=== PATIENT | female | born 1970 ===

== ENCOUNTER 2017-02-26 08:04 | Observation (INO) | payer OTHER ==
[2017-02-26 08:14] VITALS: BMI 32.2
[2017-02-26 09:22] LABS: ADD MANUAL DIFF? NO
--- NOTE | 2017-02-26 09:23 | ED PDOC ---
Arrival/HPI - General Chief Complaint: Chest Pain Time Seen by Provider: 02/26/17 08:48 Historian: Patient - History of Present Illness Narrative History of Present Illness (Text): 02/26/17 08:59 A 46 year old female, whose past medical history includes appendectomy and cholecystectomy, presents to the emergency department complaining of "not feeling well" for the past 3 days. Patient reports 3 days ago she had some right lower back pain, which has currently improved. Patient says she thought pain was do to constipation so she drank a special tea, which help her move her bowels. She notes yesterday she was sweating, had a headache, some dizziness and left sided chest discomfort. She states currently she just feels fatigued. Patient denies any fever, abdominal pain, nausea, vomiting, dysuria, or any other complaints at this time. Patient does not drink, smoke or use drugs. PMD: Dr. Vicente Time/Duration: Other (3 days) Symptom Onset: Gradual Symptom Course: Unchanged Quality: Other ("discomfort") Activities at Onset: Rest Context: Home Past Medical History - Provider Review Nursing Documentation Reviewed: Yes - Psychiatric Hx Substance Use: No - Surgical History Hx Appendectomy: Yes Hx Section: Yes Hx Cholecystectomy: Yes Hx Musculoskeletal Surgery: Yes (right shoulder) Other/Comment: ovary cyst removal Family/Social History - Physician Review Nursing Documentation Reviewed: Yes Family/Social History: Other (cardiac disease (grandmother)) Smoking Status: Never Smoked Hx Alcohol Use: No Hx Substance Use: No Allergies/Home Meds Allergies/Adverse Reactions: Allergies No Known Allergies Allergy (Verified 02/26/17 08:14) Home Medications: Home Meds Medication Instructions Recorded Confirmed No Known Home Med 02/26/17 02/26/17 Review of Systems - Physician Review All systems were reviewed & negative as marked: Yes - Review of Systems Constitutional: absent: Fevers Cardiovascular: Chest Pain Gastrointestinal: absent: Abdominal Pain, Nausea, Vomiting Musculoskeletal: Back Pain Neurological: Headache, Dizziness Endocrine: Diaphoresis Physical Exam Vital Signs Reviewed: Yes Vital Signs Temp Pulse Resp BP Pulse Ox 02/26/17 12:00 97.8 F 80 18 114/79 100 02/26/17 10:06 97.7 F 60 18 121/78 100 02/26/17 08:10 98.1 F 70 16 123/96 H 100 Temperature: Afebrile Blood Pressure: Hypertensive Pulse: Regular Respiratory Rate: Normal Appearance: Positive for: Well-Appearing, Non-Toxic, Comfortable Pain Distress: None Mental Status: Positive for: Alert and Oriented X 3 - Systems Exam Head: Present: Atraumatic, Normocephalic Pupils: Present: PERRL Extroacular Muscles: Present: EOMI Conjunctiva: Present: Normal Mouth: Present: Moist Mucous Membranes Neck: Present: Normal Range of Motion Respiratory/Chest: Present: Clear to Auscultation, Good Air Exchange. No: Respiratory Distress, Accessory Muscle Use Cardiovascular: Present: Regular Rate and Rhythm, Normal S1, S2. No: Murmurs Abdomen: Present: Normal Bowel Sounds. No: Tenderness, Distention, Peritoneal Signs Back: Present: Normal Inspection Upper Extremity: Present: Normal Inspection. No: Cyanosis, Edema Lower Extremity: Present: Normal Inspection. No: Edema Neurological: Present: GCS=15, CN II-XII Intact, Speech Normal Skin: Present: Warm, Dry, Normal Color. No: Rashes Psychiatric: Present: Alert, Oriented x 3, Normal Insight, Normal Concentration Medical Decision Making ED Course and Treatment: 02/26/17 08:59 Impression: A 46 year old female with generalized weakness and left chest discomfort. Differential Diagnosis include but are not limited to: ACS vs. Viral illness Plan: -- EKG -- Chest X-ray -- Labs -- Urinalysis -- Aspirin -- Reassess and disposition Progress Notes: EKG: Ordered, reviewed, and independently interpreted the EKG. Rate : 76 BPM Rhythm : NSR Interpretation : Incomplete right bundle branch block, prolong QT Comparison : No previous EKG for comparison. 02/26/17 09:45 Chest X-ray: Creator : Ely Yun V. COMPARISON: No prior. FINDINGS: LUNGS: No active pulmonary disease. PLEURA: No significant pleural effusion identified, no pneumothorax apparent. CARDIOVASCULAR: Normal. OSSEOUS STRUCTURES: No significant abnormalities. VISUALIZED UPPER ABDOMEN: Normal. OTHER FINDINGS: EKG leads in place IMPRESSION: No active disease. - Lab Interpretations Lab Results: 02/26/17 09:00 02/26/17 09:00 Lab Results 02/26/17 09:20: Urine Color Yellow, Urine Appearance Clear, Urine pH 6.0, Ur Specific [place] 1.010, Urine Protein Negative, Urine Glucose (UA) Negative, Urine Ketones Negative, Urine Blood Negative, Urine Nitrate Negative, Urine Bilirubin Negative, Urine Urobilinogen 0.2, Ur Leukocyte Esterase Trace H, Urine RBC 0 - 2, Urine WBC 2 - 5, Ur Epithelial Cells Many, Amorphous Sediment Few, Urine Bacteria Mod, Urine Other Fiber 02/26/17 09:00: WBC 7.4, RBC 4.28, Hgb 11.8 L, Hct 36.2, MCV 84.6, MCH 27.6, MCHC 32.6, RDW 14.4, Plt Count 356, MPV 10.6, Gran % 57.8, Lymph % (Auto) 33.1, [place] % (Auto) 6.8 H, Eos % (Auto) 1.9, Baso % (Auto) 0.4, Gran # 4.28, Lymph # 2.5, [place] # 0.5, Eos # 0.1, Baso # 0.03, D-Dimer, Quantitative 0.19, Sodium 139 , Potassium 3.8, Chloride 101, Carbon Dioxide 27, Anion Gap 15, BUN 9, Creatinine 0.8, Est GFR ( Amer) > 60, Est GFR (Non-Af Amer) > 60, Random Glucose 99, Calcium 9.1, Magnesium 2.2, Total Bilirubin 0.6, AST 28, ALT 20, Alkaline Phosphatase 79, Lactate Dehydrogenase 306 L, Total Creatine Kinase 35, Troponin I < 0.01, Total Protein 7.9, Albumin 4.0, Globulin 3.9, Albumin/ Globulin Ratio 1.0 L, Amylase 72, Lipase 66 I have reviewed the lab results: Yes - RAD Interpretation Radiology Orders: 02/26/17 08:48 CHEST PORTABLE [RAD] Stat - Medication Orders Current Medication Orders: Discontinued Medications Aspirin (Aspirin Chewable) 324 mg PO STAT STA Stop: 02/26/17 09:06 Last Admin: 02/26/17 09:20 Dose: 324 MG ED OBSERVATION Date of observation admission: 02/26/17 Time of observation admission: 10:39 - Observation admission statement Patient is being placed in observation because:: Will need serial Leonarda - Goals of Observation Goals of observation are:: Improvement of symptoms; negative Leonarda - Progress Note Progress Note: 02/26/17 10:[address] Vicente, who is aware and states to order a second set of cardiac enzymes and if negative to discharge patient home. - Scribe Statement The provider has reviewed the documentation as recorded by the Pollyibe Syd De La Torre Provider Pollyibe Attestation: All medical record entries made by the Maximilian were at my direction and personally dictated by me. I have reviewed the chart and agree that the record accurately reflects my personal performance of the history, physical exam, medical decision making, and the department course for this patient. I have also personally directed, reviewed, and agree with the discharge instructions and disposition. Disposition/Present on Arrival - Present on Arrival Any Indicators Present on Arrival: No History of DVT/PE: No History of Uncontrolled Diabetes: No Urinary Catheter: No History of Decub. Ulcer: No History Surgical Site Infection Following: None - Disposition Have Diagnosis and Disposition been Completed?: Yes Diagnosis: Chest pain Disposition: HOME/ ROUTINE Disposition Time: 15:19 Patient Plan: Discharge Condition: STABLE
[2017-02-26 09:26] LABS: URINE BILIRUBIN NEGATIVE (NEGATIVE); URINE BLOOD NEGATIVE (NEGATIVE); URINE GLUCOSE (UA) NEGATIVE (NEGATIVE); URINE KETONE NEGATIVE (NEGATIVE); URINE LEUKOCYTE ESTERASE TRACE Leu/uL (NEGATIVE); URINE PROTEIN NEGATIVE mg/dL (<30 mg/dL); URINE UROBILINOGEN 0.2 E.U./dL (<1 E.U./dL)
[2017-02-26 09:38] LABS: URINE APPEARANCE CLEAR (CLEAR); URINE COLOR YELLOW (YELLOW)
--- NOTE | 2017-02-26 09:43 | RAD ---
HISTORY: chest pain COMPARISON: No prior. FINDINGS: LUNGS: No active pulmonary disease. PLEURA: No significant pleural effusion identified, no pneumothorax apparent. CARDIOVASCULAR: Normal. OSSEOUS STRUCTURES: No significant abnormalities. VISUALIZED UPPER ABDOMEN: Normal. OTHER FINDINGS: EKG leads in place IMPRESSION: No active disease.
[2017-02-26 09:45] LABS: ALKALINE PHOSPHATASE 79 U/L (38-133); ALT/SGPT 20 U/L (7-56); AMYLASE 72 U/L (35-125); AST/SGOT 28 U/L (15-39); BASO # 0.03 K/mm3 (0.0-2.0); BASO % 0.4 % (0.0-3.0); BILIRUBIN,TOTAL 0.6 mg/dL (0.2-1.3); BLOOD UREA NITROGEN 9 mg/dL (7-21); CALCIUM 9.1 mg/dL (8.4-10.5); CARBON DIOXIDE 27 mmol/L (21-33); CHLORIDE 101 mmol/L (98-107); EOS # 0.1 (0.0-0.7); EOS % 1.9 % (1.5-5.0); GFR AFRICAN-AMERICAN > 60; GLUCOSE,RANDOM 99 mg/dL (70-110); GRAN # 4.28 (1.4-6.5); GRAN % 57.8 % (50.0-68.0); HEMATOCRIT 36.2 % (36.0-48.0); LIPASE 66 U/L (23-300); LYMPH # 2.5 (1.2-3.4); LYMPH % 33.1 % (22.0-35.0); MAGNESIUM 2.2 mg/dL (1.7-2.2); MEAN CELL VOLUME 84.6 fL (80.0-105.0); MEAN CORPUSCULAR HEMOGLOBIN 27.6 pg (25.0-35.0); MEAN CORPUSCULAR HGB CONC 32.6 g/dl (31.0-37.0); MEAN PLATELET VOLUME 10.6 fl (7.0-11.0); MONO # 0.5 (0.1-0.6); MONO % 6.8 % (1.0-6.0); PLATELET COUNT 356 10^3/uL (120.0-450.0); POTASSIUM 3.8 mmol/L (3.6-5.0); RED CELL DISTRIBUTION WIDTH 14.4 % (11.5-14.5); SODIUM 139 mmol/L (132-148); TOTAL PROTEIN 7.9 g/dL (5.8-8.3); WHITE BLOOD COUNT 7.4 10^3/ul (4.5-11.0)
[2017-02-26 09:47] LABS: URINE AMORPHOUS SEDIMENT FEW; URINE BACTERIA MOD (NEG); URINE EPITHELIAL CELLS MANY /hpf (0-5); URINE RBC 0 - 2 /hpf (0-2)
[2017-02-26 09:57] LABS: TROPONIN I < 0.01 ng/mL
[2017-02-26 12:04] VITALS: TEMP 97.8
[2017-02-26 14:35] LABS: TROPONIN I < 0.01 ng/mL
[2017-02-26 15:29] VITALS: BP 116/72; PULSE 62; RESP 16; O2SAT 96
--- NOTE | 2017-02-26 17:29 | CARD ---
APPROVED REPORT EKG Measurement Heart [id number] <Conclusion> Normal sinus rhythm Incomplete right bundle branch block Prolonged QT Abnormal ECG
== END 2017-02-26 15:19 | disposition home or self-care (01) ==
LOC: ED 08:04 → EROBSV 10:38
PROVIDERS: ADMIT Emergency Medicine; ATTEND Emergency Medicine
DX: R07.9 Chest pain, unspecified (principal)
CPT/HCPCS: 71010; 80053; 81001; 82150; 82550; 83615; 83690; 83735; 84484; 85025; 85378; 87086; 93005; 99284; G0378

== ENCOUNTER 2017-05-12 12:33 | Emergency (ER) | payer OTHER ==
[2017-05-12 12:34] VITALS: BMI 32.2
[2017-05-12 12:47] VITALS: TEMP 97.5
[2017-05-12] MEDS ORDERED: Sodium Chloride 0.9% 1,000 ML IV STA ×2 (13:40→18:10)
--- NOTE | 2017-05-12 13:41 | CT ---
PROCEDURE: CT HEAD WITHOUT CONTRAST. HISTORY: dizzy COMPARISON: None available. TECHNIQUE: Axial computed tomography images were obtained through the head/brain without intravenous contrast. Radiation dose: Total exam DLP = 734 mGy-cm. This CT exam was performed using one or more of the following dose reduction techniques: Automated exposure control, adjustment of the mA and/or kV according to patient size, and/or use of iterative reconstruction technique. FINDINGS: HEMORRHAGE: No intracranial hemorrhage. BRAIN: No mass effect or edema. No atrophy or chronic microvascular ischemic changes. VENTRICLES: Unremarkable. No hydrocephalus. CALVARIUM: Unremarkable. PARANASAL SINUSES: Unremarkable as visualized. No significant inflammatory changes. MASTOID AIR CELLS: Unremarkable as visualized. No inflammatory changes. OTHER FINDINGS: None. IMPRESSION: No acute findings
--- NOTE | 2017-05-12 13:51 | ED PDOC ---
Arrival/HPI - General Chief Complaint: GI Problem Time Seen by Provider: 05/12/17 12:59 Historian: Patient - History of Present Illness Narrative History of Present Illness (Text): 05/12/17 13:11 A 46 year old female presents to the emergency department complaining of dizziness since waking up this morning. Dizziness is described as the sensation of the room spinning and is associated with nausea, vomiting, unsteady gait. Patient notes symptoms are better at rest and worse with movement. Patient mentions yesterday they went to a water park where she got water in her right ear and still feels sensation of fullness in the right ear. Patient denies any fever, headache, or other complaints at this time. PMD: Dr. Vicente Time/Duration: 4-6 hours Symptom Onset: Sudden Symptom Course: Unchanged Quality: Other Activities at Onset: Rest, Light Context: Home Past Medical History - Provider Review Nursing Documentation Reviewed: Yes - Infectious Disease Hx of Infectious Diseases: None - Psychiatric Hx Substance Use: No - Surgical History Hx Appendectomy: Yes Hx Section: Yes Hx Cholecystectomy: Yes Hx Musculoskeletal Surgery: Yes (right shoulder) Other/Comment: ovary cyst removal Family/Social History - Physician Review Nursing Documentation Reviewed: Yes Family/Social History: Unknown Family HX Smoking Status: Never Smoked Hx Alcohol Use: No Hx Substance Use: No Allergies/Home Meds Allergies/Adverse Reactions: Allergies No Known Allergies Allergy (Verified 05/12/17 12:47) Review of Systems - Physician Review All systems were reviewed & negative as marked: Yes - Review of Systems Constitutional: absent: Fevers Respiratory: absent: SOB Cardiovascular: absent: Chest Pain Gastrointestinal: Nausea, Vomiting. absent: Abdominal Pain Neurological: Dizziness. absent: Headache Physical Exam Vital Signs Reviewed: Yes Vital Signs Temp Pulse Resp BP Pulse Ox 05/12/17 19:00 85 14 108/73 97 05/12/17 14:00 72 18 122/77 98 05/12/17 12:43 97.5 F L 75 18 132/82 99 Temperature: Afebrile Blood Pressure: Normal Pulse: Regular Respiratory Rate: Normal Appearance: Positive for: Well-Appearing, Non-Toxic, Comfortable Pain Distress: None Mental Status: Positive for: Alert and Oriented X 3 - Systems Exam Head: Present: Atraumatic, Normocephalic Pupils: Present: PERRL Extroacular Muscles: Present: EOMI, Other (no vertical or rotational nystagmus) Conjunctiva: Present: Normal Ears: Present: Normal, NORMAL TM, Normal Canal. No: Erythema, TM Bulging Mouth: Present: Moist Mucous Membranes Neck: Present: Normal Range of Motion Respiratory/Chest: Present: Clear to Auscultation, Good Air Exchange. No: Respiratory Distress, Accessory Muscle Use Cardiovascular: Present: Regular Rate and Rhythm, Normal S1, S2. No: Murmurs Abdomen: Present: Normal Bowel Sounds. No: Tenderness, Distention, Peritoneal Signs Back: Present: Normal Inspection Upper Extremity: Present: Normal Inspection. No: Cyanosis, Edema Lower Extremity: Present: Normal Inspection. No: Edema Neurological: Present: GCS=15, CN II-XII Intact, Speech Normal, Motor Func Grossly Intact, Normal Sensory Function, Normal Cerebellar Funct, Other (no skew deviation) Skin: Present: Warm, Dry, Normal Color. No: Rashes Psychiatric: Present: Alert, Oriented x 3 Medical Decision Making ED Course and Treatment: EKG: Ordered, reviewed, and independently interpreted the EKG. Rate : 70 BPM Rhythm : NSR Interpretation : normal axis, normal intervals, no acute ischemia 05/12/17 13:[address]: Creator : Rodrick Sánchez MD COMPARISON: None available. FINDINGS: HEMORRHAGE: No intracranial hemorrhage. BRAIN: No mass effect or edema. No atrophy or chronic microvascular ischemic changes. VENTRICLES: Unremarkable. No hydrocephalus. CALVARIUM: Unremarkable. PARANASAL SINUSES: Unremarkable as visualized. No significant inflammatory changes. MASTOID AIR CELLS: Unremarkable as visualized. No inflammatory changes. OTHER FINDINGS: None. IMPRESSION: No acute findings 2000 The pt reports feeling better. She was able to ambulate around the emergency department with steady gait. She is comfortable w dc home. Follow up and return precautions advised. - Lab Interpretations Lab Results: 05/12/17 18:30 05/12/17 18:30 Lab Results 05/12/17 18:30: Sodium 138, Potassium 4.1, Chloride 104, Carbon Dioxide 23, Anion Gap 15, BUN 7, Creatinine 0.6, Est GFR ( Amer) > 60, Est GFR (Non- Af Amer) > 60, Random Glucose 104, Calcium 9.2, Total Bilirubin 0.5, AST 28, ALT 33, Alkaline Phosphatase 87, Total Protein 7.9, Albumin 4.1, Globulin 3.7, Albumin/Globulin Ratio 1.1 05/12/17 18:30: WBC 9.4 D, RBC 4.24, Hgb 12.0, Hct 36.3, MCV 85.6, MCH 28.3, MCHC 33.1, RDW 14.6 H, Plt Count 351, MPV 11.0, Gran % 84.1 H, Lymph % (Auto) 12.6 L, [place] % (Auto) 3.0, Eos % (Auto) 0.2 L, Baso % (Auto) 0.1, Gran # 7.87 H , Lymph # 1.2, [place] # 0.3, Eos # 0.0, Baso # 0.01 05/12/17 16:30: Urine Color Yellow, Urine Appearance Clear, Urine pH 7.5, Ur Specific [place] 1.015, Urine Protein Negative, Urine Glucose (UA) Negative, Urine Ketones Negative, Urine Blood Negative, Urine Nitrate Negative, Urine Bilirubin Negative, Urine Urobilinogen 0.2, Ur Leukocyte Esterase Negative - RAD Interpretation Radiology Orders: 05/12/17 13:20 HEAD W/O CONTRAST [CT] Stat - Medication Orders Current Medication Orders: Discontinued Medications Dexamethasone (Decadron Inj) 10 mg IVP STAT STA Stop: 05/12/17 18:10 Last Admin: 05/12/17 18:32 Dose: 10 mg Diphenhydramine HCl (Benadryl) 25 mg IVP STAT STA Stop: 05/12/17 18:10 Last Admin: 05/12/17 18:31 Dose: 25 mg Sodium Chloride (Sodium Chloride 0.9%) 1,000 mls @ 999 mls/hr IV .Q1H1M STA Stop: 05/12/17 14:40 Last Admin: 05/12/17 14:03 Dose: 999 mls/hr Sodium Chloride (Sodium Chloride 0.9%) 1,000 mls @ 999 mls/hr IV .Q1H1M STA Stop: 05/12/17 19:10 Last Admin: 05/12/17 18:32 Dose: 999 mls/hr Lorazepam (Ativan) 0.5 mg IVP ONCE ONE PRN Reason: Protocol Stop: 05/12/17 16:35 Last Admin: 05/12/17 16:45 Dose: 0.5 mg Meclizine HCl (Antivert) 25 mg PO STAT STA Stop: 05/12/17 13:21 Last Admin: 05/12/17 13:42 Dose: 25 mg Metoclopramide HCl (Reglan) 10 mg IVP STAT STA Stop: 05/12/17 18:10 Last Admin: 05/12/17 18:32 Dose: 10 mg Ondansetron HCl (Zofran Inj) 4 mg IVP ONCE ONE Stop: 05/12/17 13:41 Last Admin: 05/12/17 14:03 Dose: 4 mg - Scribe Statement The provider has reviewed the documentation as recorded by the Pollyibe Syd De La Torre Provider Scribe Attestation: All medical record entries made by the Maximilian were at my direction and personally dictated by me. I have reviewed the chart and agree that the record accurately reflects my personal performance of the history, physical exam, medical decision making, and the department course for this patient. I have also personally directed, reviewed, and agree with the discharge instructions and disposition. Disposition/Present on Arrival - Present on Arrival Any Indicators Present on Arrival: No History of DVT/PE: No History of Uncontrolled Diabetes: No Urinary Catheter: No History of Decub. Ulcer: No History Surgical Site Infection Following: None - Disposition Have Diagnosis and Disposition been Completed?: Yes Diagnosis: Vertigo Disposition: HOME/ ROUTINE Disposition Time: 20:07 Condition: IMPROVED Discharge Instructions (ExitCare): Vertigo (ED) Additional Instructions: Please follow up with your doctor. Return to the ER for any worsening symptoms or for any other concerns. Prescriptions: Meclizine [Meclizine*] 25 mg PO Q8H PRN #30 tab PRN Reason: vertigo Ondansetron ODT [Zofran ODT] 4 mg PO Q4H PRN #10 odt PRN Reason: Nausea/Vomiting Referrals: Sarthak Vicente MD [Primary Care Provider] - Follow up with primary
[2017-05-12] MEDS ORDERED: DiphenhydrAMINE 50 mg/ml Inj IVP STA (18:09)
[2017-05-12 19:06] LABS: ADD MANUAL DIFF? NO
[2017-05-12 19:11] LABS: BASO # 0.01 K/mm3 (0.0-2.0); BASO % 0.1 % (0.0-3.0); EOS % 0.2 % (1.5-5.0); GRAN # 7.87 (1.4-6.5); GRAN % 84.1 % (50.0-68.0); HEMATOCRIT 36.3 % (36.0-48.0); LYMPH # 1.2 (1.2-3.4); LYMPH % 12.6 % (22.0-35.0); MEAN CELL VOLUME 85.6 fL (80.0-105.0); MEAN CORPUSCULAR HEMOGLOBIN 28.3 pg (25.0-35.0); MEAN CORPUSCULAR HGB CONC 33.1 g/dl (31.0-37.0); MONO # 0.3 (0.1-0.6); PLATELET COUNT 351 10^3/uL (120.0-450.0); RED CELL DISTRIBUTION WIDTH 14.6 % (11.5-14.5); WHITE BLOOD COUNT 9.4 10^3/ul (4.5-11.0)
[2017-05-12 19:13] VITALS: BP 108/73; PULSE 85; RESP 14; O2SAT 97
[2017-05-12 19:20] LABS: ALB/GLOB RATIO 1.1 (1.1-1.8); ALKALINE PHOSPHATASE 87 U/L (38-133); ALT/SGPT 33 U/L (7-56); AST/SGOT 28 U/L (15-39); BILIRUBIN,TOTAL 0.5 mg/dL (0.2-1.3); BLOOD UREA NITROGEN 7 mg/dL (7-21); CALCIUM 9.2 mg/dL (8.4-10.5); CARBON DIOXIDE 23 mmol/L (21-33); GFR AFRICAN-AMERICAN > 60; GLUCOSE,RANDOM 104 mg/dL (70-110); POTASSIUM 4.1 mmol/L (3.6-5.0); SODIUM 138 mmol/L (132-148); TOTAL PROTEIN 7.9 g/dL (5.8-8.3)
[2017-05-12 19:34] LABS: CHLORIDE 104 mmol/L (98-107)
[2017-05-12 19:44] LABS: PH,URINE 7.5 (4.7-8.0); URINE BILIRUBIN NEGATIVE (NEGATIVE); URINE BLOOD NEGATIVE (NEGATIVE); URINE GLUCOSE (UA) NEGATIVE (NEGATIVE); URINE KETONE NEGATIVE (NEGATIVE); URINE LEUKOCYTE ESTERASE NEGATIVE Leu/uL (NEGATIVE); URINE PROTEIN NEGATIVE mg/dL (<30 mg/dL); URINE UROBILINOGEN 0.2 E.U./dL (<1 E.U./dL)
[2017-05-12 19:48] LABS: URINE APPEARANCE CLEAR (CLEAR); URINE COLOR YELLOW (YELLOW)
--- NOTE | 2017-05-12 20:35 | CARD ---
APPROVED REPORT EKG Measurement Heart [id number] <Conclusion> Normal sinus rhythm Normal ECG
== END 2017-05-12 20:08 | disposition home or self-care (01) ==
LOC: ED 12:33
DX: R42 Dizziness and giddiness (principal)
CPT/HCPCS: 70450; 80053; 81003; 85025; 93005; 96361; 96374; 96375; 99283; J1100; J1200; J2060; J2405; J2765; J7040